=== PATIENT | female | born 1945 | race Two or more races ===

== ENCOUNTER → 2018-01-19 | Emergency (ER) | payer OTHER ==
[~2018-01-19] VITALS: Ht 165.1 cm; Wt 72.6 kg
[~2018-01-19] MED LIST: INDAPAMIDE2.5 MG; LISINOPRIL10 MG; METOPROLOL SUCC25 MG
== END | disposition home or self-care (01) ==
LOC: ER 13:06
DX: K29.60 Other gastritis without bleeding (principal)

== ENCOUNTER 2018-10-27 13:22 | Emergency (ER) | payer OTHER ==
[~2018-10-27] VITALS: Ht 160 cm; Wt 81.6 kg
== END 2018-10-27 15:30 | disposition home or self-care (01) ==
LOC: ER 13:22
DX: K64.4 Residual hemorrhoidal skin tags (principal)